=== PATIENT | male | born 1995 | race Caucasian/White ===

== ENCOUNTER 2023-04-17 13:49 | Emergency (ER) | payer MEDICAID, SELFPAY ==
[2023-04-17 14:08] VITALS: BP 147/88; PULSE 84; RESP 18; TEMP 36.4; O2SAT 98; BMI 31.6
[2023-04-17 16:20] VITALS: BP 147/86; PULSE 80; RESP 18; TEMP 37.1; O2SAT 100
--- NOTE | 2023-04-17 16:48 | ED.DENTAL ---
HPI - Dental/Oral <Johnny Verma PA-C - Last Filed: 04/17/23 16:51> General Chief complaint: Dental/Oral Stated complaint: TOOTH PX X2 Time Seen by Provider: 04/17/23 15:18 Source: patient Mode of arrival: Ambulatory History of Present Illness HPI Narrative: 28-year-old male presents to the ED with 2 days of right upper wisdom tooth pain. Patient states that he has been evaluated by the dentist in the [facility], was recommended to get the right upper wisdom tooth extracted due to an infection. However, patient is not living on the [facility] any longer, therefore is not eligible to be treated by this dentist. Patient had resurgence of pain in the tooth 2 days ago. Pain is poorly controlled with Tylenol and ibuprofen. Patient denies fever, chills, nausea, vomiting, trouble swallowing. Related Data Previous Rx's Medication Instructions Recorded amoxicillin 875 mg-potassium 1 tab PO Q12H 14 days #28 tabs 04/17/23 clavulanate 125 mg tablet oxycodone-acetaminophen 5 mg-325 1 tab PO Q6H PRN pain #10 tabs 04/17/23 mg tablet (Percocet) Allergies Allergy/AdvReac Type Severity Reaction Status Date / Time No Known Drug Allergies Allergy Verified 04/17/23 14:08 Review of Systems <Johnny Verma PA-C - Last Filed: 04/17/23 16:51> Constitutional Constitutional: Denies chills, Denies fatigue, Denies fever(s), Denies frequent falls, Denies lethargy and Denies weakness Eyes Eyes: Denies change in vision, Denies eye discharge, Denies irritation and Denies loss of vision ENT Ears, Nose, Mouth, and Throat: Denies change in voice, Reports dental pain, Denies dizziness, Denies neck pain, Denies sore throat and Denies throat swelling Cardiovascular Cardiovascular: Denies chest pain, Denies irregular heart rhythm, Denies lightheadedness, Denies palpitations, Denies dyspnea, Denies dyspnea on exertion and Denies orthopnea Respiratory Respiratory: Denies cough, Denies dyspnea, Denies dyspnea on exertion and Denies wheezing Gastrointestinal Gastrointestinal: Denies abdominal pain, Denies change in bowel habits, Denies diarrhea, Denies nausea and Denies vomiting Musculoskeletal Musculoskeletal: Denies neck pain and Denies numbness Integumentary/Breasts Skin/Breast: Denies pruritus, Denies erythema, Denies rash and Denies wounds Neurologic Neurologic: Denies behavioral changes, Denies confusion, Denies dizziness, Denies frequent falls, Denies loss of vision, Denies numbness and Denies weakness Psychiatric Psychiatric: Denies anxiety, Denies behavioral changes, Denies confusion, Denies depression, Denies homicidal ideation and Denies suicidal ideation Endocrine Endocrine: Denies fatigue, Denies flushing and Denies palpitations Hematologic/Lymphatic Hematologic/Lymphatic: Denies easy bruising Allergic/Immunologic Allergic/Immunologic: Denies urticaria, Denies throat swelling and Denies wheezing Patient History <Johnny Verma PA-C - Last Filed: 04/17/23 16:51> Social History Smoking Status: Never smoker Smoking Status: Never smoker alcohol intake frequency: holidays/special occasions only Substance Use Type: does not use Exam <Johnny Verma PA-C - Last Filed: 04/17/23 16:51> Narrative Exam Narrative: Const General:?cooperative, healthy appearing and comfortable [facility] Head:?normal to inspection Ears:?hearing grossly normal bilaterally Nose:?external nose normal Face and sinus:?normal facial exam and sinuses nontender Mouth:?oral mucosae normal; overall poor dentition; right upper wisdom tooth appears with caries, possible periapical abscess. It is tender to palpation. Throat:?posterior oropharynx normal Eyes General:?appearance normal, both eyes and all related structures Neck Neck:?normal visual inspection and no lymphadenopathy noted Resp Effort & Inspection:?normal respiratory effort Auscultation:?clear to auscultation bilaterally Cardio Rate:?regular rate Rhythm:?regular rhythm Neuro General:?patient alert, patient awake and patient oriented x3 Initial Vital Signs Initial Vital Signs: Vital Signs Temperature 97.6 F 04/17/23 14:08 Pulse Rate 84 04/17/23 14:08 Respiratory Rate 18 04/17/23 14:08 Blood Pressure 147/88 H 04/17/23 14:08 Pulse Oximetry 98 04/17/23 14:08 Oxygen Delivery Method Room Air 04/17/23 14:08 <Nicolasa Hutchinson DO - Last Filed: 04/22/23 07:36> Initial Vital Signs Initial Vital Signs: Vital Signs Temperature 97.6 F 04/17/23 14:08 Pulse Rate 84 04/17/23 14:08 Respiratory Rate 18 04/17/23 14:08 Blood Pressure 147/88 H 04/17/23 14:08 Pulse Oximetry 98 04/17/23 14:08 Oxygen Delivery Method Room Air 04/17/23 14:08 Course <Johnny Verma PA-C - Last Filed: 04/17/23 16:51> Vital Signs Vital signs: Vital Signs - 8 hr 04/17/23 14:08 04/17/23 16:20 Temperature 97.6 F 98.8 F Pulse Rate 84 80 Respiratory Rate 18 18 Blood Pressure 147/88 H 147/86 H Pulse Oximetry 98 100 Oxygen Delivery Method Room Air Room Air <Nicolasa Hutchinson DO - Last Filed: 04/22/23 07:36> Vital Signs Vital signs: Vital Signs - 8 hr 04/17/23 14:08 04/17/23 16:20 Temperature 97.6 F 98.8 F Pulse Rate 84 80 Respiratory Rate 18 18 Blood Pressure 147/88 H 147/86 H Pulse Oximetry 98 100 Oxygen Delivery Method Room Air Room Air MDM - Dental/Oral <Johnny Verma PA-C - Last Filed: 04/17/23 16:51> MDM Narrative Medical decision making narrative: 28-year-old male presents to the ED with 2 days of right upper wisdom tooth pain. Concern for odontogenic infection versus cracked tooth versus caries versus other. Will start patient on antibiotics, pain control. Recommend patient follow-up with a dentist as soon as possible. Recommended [facility] for or a walk-in clinic. ED return precautions were discussed with patient. Patient verbalized understanding. Medical records reviewed: Yes Discharge Plan Departure Patient Disposition: Home Clinical Impression: Toothache Instructions: DI for Dental Pain Activity Restrictions/Additional Instructions: You were evaluated in the ED today for dental pain. Your pain could be from the infected upper left wisdom tooth. You are being prescribed an antibiotic. Please take that as prescribed. It is important that you follow-up with a dentist as soon as possible for further evaluation and possible extraction of the infected tooth. [facility] may go to [facility] [address] [facility] [facility], [place], [place] [address]. The phone number is [phone]. They are a walk-in clinic so no appointments needed and are open Saturday through Saturday 8:00 a.m. to 5:00 p.m. Return to the ED if you have worsening symptoms, fever, chills, persistent vomiting. Prescriptions: New amoxicillin-pot clavulanate 875-125 mg tablet 1 tab PO Q12H 14 Days Qty: 28 0RF oxycodone-acetaminophen [Percocet] 5-325 mg tablet 1 tab PO Q6H PRN (Reason: pain) Qty: 10 0RF Referrals: Miscellaneous,Doctor, MD [Primary Care Provider] - Stand Alone Forms: Patient Portal/API ED Sign-out <Nicolasa Hutchinson DO - Last Filed: 04/22/23 07:36> Cosign ED Attending Wily Attestation: I was available for consultation.
== END 2023-04-17 16:21 | disposition home or self-care (01) ==
PROVIDERS: Emergency Provider Student in an Organized Health Care Education/Training Program
DX: K08.89 Other specified disorders of teeth and supporting structures (principal)
CPT/HCPCS: 99281

== ENCOUNTER 2023-12-20 05:00 | Emergency (ER) | payer OTHER, MEDICAID, SELFPAY ==
[2023-12-20 05:08] VITALS: BP 140/86; PULSE 105; RESP 20; TEMP 36.8; O2SAT 99; BMI 34.9
--- NOTE | 2023-12-20 05:18 | ED.SKABFB ---
HPI - Skin/Abscess/Foreign Bdy General Chief complaint: Skin/Abscess/Foreign Body Stated complaint: swollen face left side Time Seen by Provider: 12/20/23 05:17 Source: patient Mode of arrival: Ambulatory History of Present Illness HPI narrative: 28-year-old male who yesterday did have some left upper dental pain and yesterday does not have any dental pain but now has swelling and some discomfort in the left side of his face. No problems swallowing. No fevers. He did have tooth extracted about a month ago. No sinus congestion or sore throat. Has not tried anything for symptoms prior to arrival. Related Data Previous Rx's Medication Instructions Recorded oxycodone-acetaminophen 5 mg-325 1 tab PO Q6H PRN pain #10 tabs 04/17/23 mg tablet (Percocet) penicillin V potassium 500 mg 500 mg PO QID 7 days #28 tabs 12/20/23 tablet Allergies Allergy/AdvReac Type Severity Reaction Status Date / Time No Known Drug Allergies Allergy Verified 04/17/23 14:08 Review of Systems ENT Ears, Nose, Mouth, and Throat: Reports system reviewed and no additional complaints, except as documented Integumentary/Breasts Skin/Breast: Reports system reviewed and no additional complaints, except as documented Patient History Social History Smoking Status: Never smoker Smoking Status: Never smoker alcohol intake frequency: holidays/special occasions only Substance Use Type: does not use Exam Initial Vital Signs Initial Vital Signs: Vital Signs Temperature 98.2 F 12/20/23 05:08 Pulse Rate 105 H 12/20/23 05:08 Respiratory Rate 20 12/20/23 05:08 Blood Pressure 140/86 12/20/23 05:08 Pulse Oximetry 99 12/20/23 05:08 Oxygen Delivery Method Room Air 12/20/23 05:08 HENMT Ears: TM's normal bilaterally Face and sinus: no crepitus, no ecchymosis, no erythema, edema on the left maxilla and no fluctuance Mouth: oral mucosae normal Teeth and gingiva: fair dentition Skin General: no rashes or lesions noted Neuro General: patient alert and patient awake Course Orders Ordered: Discontinued Medications Penicillin V Potassium (Penicillin Vk 250 Mg Tablet) 500 mg PO NOW ONE Stop: 08/30/24 05:19 Vital Signs Vital signs: Vital Signs - 8 hr 12/20/23 05:08 Temperature 98.2 F Pulse Rate 105 H Respiratory Rate 20 Blood Pressure 140/86 Pulse Oximetry 99 Oxygen Delivery Method Room Air MDM - Skin/Abscess/Foreign Bdy MDM Narrative Medical decision making narrative: No overt abscess noted that is drainable here in the emergency department however his physical exam and presentation today are most consistent with a dental abscess. Will treat him with antibiotics. First dose given here in the ER and remainder of the prescription sent to the pharmacy his choice. He was advised to contact a dentist for a follow-up. Expressed understanding and agreement with the plan. Discharge Plan Departure Patient Disposition: Home Clinical Impression: Dental infection Instructions: Tooth Abscess Activity Restrictions/Additional Instructions: Recommend that you take the antibiotics as directed. I also recommend that you follow-up with a dentist. You can take Tylenol/ibuprofen for discomfort. Return to the emergency department for new or worsening symptoms. Prescriptions: New penicillin V potassium 500 mg tablet 500 mg PO QID 7 Days Qty: 28 0RF No Action oxycodone-acetaminophen [Percocet] 5-325 mg tablet 1 tab PO Q6H PRN (Reason: pain) Qty: 10 0RF Referrals: Miscellaneous,Doctor, [Primary Care Provider] - Stand Alone Forms: Patient Portal/API
[2023-12-20] MEDS: PENICILLIN VK 250 MG TABLET 500 MG PO (05:31)
== END 2023-12-20 05:33 | disposition home or self-care (01) ==
PROVIDERS: Emergency Provider Emergency Medicine
DX: K04.7 Periapical abscess without sinus (principal)
CPT/HCPCS: 99283

== ENCOUNTER 2025-03-14 14:49 | Emergency (ER) | payer OTHER, SELFPAY ==
[2025-03-14 14:58] VITALS: BP 144/85; PULSE 77; RESP 16; TEMP 36.7; O2SAT 98; BMI 37.4
--- NOTE | 2025-03-14 15:13 | ED_ITS ---
HPI - Skin/Abscess/Foreign Bdy General Chief complaint: Skin/Abscess/Foreign Body Stated complaint: swelling in the face Time Seen by Provider: 03/14/25 15:10 Source: patient Mode of arrival: Ambulatory Limitations: no limitations History of Present Illness HPI narrative: Patient healthy 29-year-old male presenting today with left-sided facial swelling. He does have poor dentition he had some dental pain a day or 2 ago he was getting better but this morning around midnight woke up and had some swelling he took some Benadryl and went down. He has no difficulty swallowing no tongue swelling no rash. He does feel some pressure in his teeth but can not pinpoint if it is directly tooth infection. He tried calling a dentist but many are multiple months out. He has not had fever or chills. Related Data Previous Rx's ?Medication ?Instructions ?Recorded clindamycin HCl 300 mg capsule 300 mg PO TID 7 days #2 1 caps 03/14/25 Allergies Allergy/AdvReac Type Severity Reaction Status Date / Time Penicillins Allergy Severe Anaphylaxis Verified 03/14/25 14:57 Patient History Smoking Status: Former smoker tobacco type: vaping alcohol intake frequency: holidays/special occasions only Exam Initial Vital Signs Initial Vital Signs: Vital Signs Temperature 98.0 F 03/14/25 14:58 Pulse Rate 77 03/14/25 14:58 Respiratory Rate 16 03/14/25 14:58 Blood Pressure 144/85 H 03/14/25 14:58 Pulse Oximetry 98 03/14/25 14:58 Oxygen Delivery Method Room Air 03/14/25 14:58 GENERAL: Well-appearing, well-nourished and in no acute distress. HENT: Overall poor dentition no obvious dental abscess but he does have some obvious left zygomatic facial swelling without significant erythema. Maintaining secretions and airway is patent. EARS: Tympanic membrane visualized bilaterally without erythema or fluid CARDIOVASCULAR: peripheral pulses in tact, cap refill <2 sec RESPIRATORY: No respiratory distress, speaks in full sentences without difficulty EXTREMITIES: Normal range of motion, no clubbing or edema. Neurovascularly intact NEUROLOGICAL: Cranial nerves II through XII grossly intact. Normal gait and speech. SKIN: Warm, dry, no petechiae, no rashes or lesions. Course Vital Signs Vital signs: Vital Signs - 8 hr 03/14/25 14:58 Temperature 98.0 F Pulse Rate 77 Respiratory Rate 16 Blood Pressure 144/85 H Pulse Oximetry 98 Oxygen Delivery Method Room Air MDM - Skin/Abscess/Foreign Bdy MDM Narrative Medical decision making narrative: Patient healthy 29-year-old male presenting today with facial swelling. I suspect a dental infection he has no significant erythema no fever vitals are stable. He is allergic to penicillin with anaphylaxis reaction. He is given 1st dose of clindamycin here in the ED. No concern for Dominick angina. Discharge Plan Departure Patient Disposition: Home Clinical Impression: Pain, dental Instructions: DI for Dental Pain Activity Restrictions/Additional Instructions: *You have been diagnosed with dental pain *What to do: At this time suspect you have a tooth infection. Please call and follow-up with dentist as soon as possible *Continue to take medications as directed Clindamycin 300 mg 3 times a day for 7 days Motrin 600 mg every 6 hours for [id number] pain Tylenol 1000 mg every 6 hours for [id number] pain *Follow up with your primary care provider in 2-3 days or call [phone] *Return to ER if you should have increasing facial swelling redness fever difficulty swallowing or any new, worsening or concerning symptoms Prescriptions: New clindamycin HCl 300 mg capsule 300 mg PO TID 7 Days Qty: 21 0RF Stand Alone Forms: Patient Portal/API
[2025-03-14] MEDS: CLINDAMYCIN 150 MG CAPSULE 300 MG PO (15:21)
== END 2025-03-14 15:31 | disposition home or self-care (01) ==
PROVIDERS: Emergency Provider Emergency Medicine
DX: K08.89 Other specified disorders of teeth and supporting structures (principal); R22.0 Localized swelling, mass and lump, head; Z88.0 Allergy status to penicillin
CPT/HCPCS: 99283

== ENCOUNTER 2025-03-15 05:47 | Emergency (ER) | payer OTHER, SELFPAY ==
--- NOTE | 2025-03-15 05:56 | DI.CT.S_ITS ---
PROCEDURE: CT SOFT TISSUE NECK W CON INDICATIONS: left facial swelling, dental infection TECHNIQUE: After the administration of intravenous contrast, 3.0 mm axial sections acquired from the sella to the aortic arch. Additional oblique axial 3.0 mm sections acquired through the pharynx. 3 mm thick coronal and sagittal reformats were generated. For radiation dose reduction, the following was used: automated exposure control. COMPARISON: None. FINDINGS: Image quality: Excellent. Lymph nodes: No enlarged lymph nodes seen throughout the neck. Vessels: Visualized vasculature appears patent. Neck spaces: The oropharynx, nasopharynx, and pharynx demonstrate no mucosal lesions. The vocal cords, false vocal cords, pyriform sinuses, epiglottis, vallecula, and tongue base all appear normal. Extramucosal spaces appear unremarkable. Glands: The parotid and submandibular glands appear normal. Thyroid gland is unremarkable. Miscellaneous: Cellulitic change, left maxillary and mandibular regions without abscess or soft tissue gas. Visualized brain and orbits appear normal. Lung apices appear clear. Superficial soft tissues appear normal. Bones: No suspicious bony lesions. Poor dentition. Findings include a periapical lucency in the left front maxillary tooth as well as a tooth remnant in the left maxilla. Visualized sinuses and mastoids appear unremarkable. IMPRESSION: 1. Poor dentition with left frontal maxillary tooth periapical lucency. 2. Left face cellulitic change without abscess. Comment: Final report is concordant with preliminary interpretation provided by [facility]. Dictated by: Sesar Moreau M.D. on 03/15/2025 at 7:27 Approved by: Sesar Moreau M.D. on 03/15/2025 at 7:32
--- NOTE | 2025-03-15 05:57 | ED.GENADULT ---
HPI - General Adult General Chief complaint: Dental/Oral Stated complaint: Facial Swelling Time Seen by Provider: 03/15/25 05:55 History of Present Illness HPI narrative: 29-year-old male currently on oral clindamycin antibiotic for left upper tooth dental infection, increasing swelling to the left lip and maxillary face. No direct blow or trauma. Able to swallow, no change in voice. Moves his neck well. Denies sensation of fevers or chills. History of penicillin allergy. Related Data Previous Rx's ?Medication ?Instructions ?Recorded clindamycin HCl 300 mg capsule 300 mg PO TID 7 days #21 caps 03/14/25 prednisone 20 mg tablet 40 mg (2 x 20 mg) PO DAILY 5 days 03/15/25 #10 tabs Allergies Allergy/AdvReac Type Severity Reaction Status Date / Time Penicillins Allergy Severe Anaphylaxis Verified 03/15/25 06:01 Patient History Social History Smoking Status: Current every day smoker tobacco type: vaping alcohol intake frequency: holidays/special occasions only Exam Narrative Exam Narrative: GENERAL: Well-developed patient, in mild distress. HEAD: Atraumatic. Normocephalic. EYES: Pupils equal round and reactive. Extraocular motions intact. No scleral icterus. No injection or drainage. ENT: Left upper lip and pre-maxillary facial edema c/w cellulitis, no visible head, no fluctuance, no crepitance, intraoral exam shows poor dental caries throughout, without specific area of gingival swelling. Open mouth well. Normal phonation, able handle his oral secretions. NECK: Trachea midline. Moves neck well. CARDIOVASCULAR: Regular rate and rhythm without murmurs, gallops, or rubs. RESPIRATORY: Clear to auscultation. Breath sounds equal bilaterally. No wheezes, rales, or rhonchi. GASTROINTESTINAL: Abdomen soft, non-tender, nondistended. EXTREMITIES: No edema or joint tenderness. BACK: Nontender without deformity or crepitance. No flank tenderness. NEURO: AOx3. Motor functions grossly nonfocal. SKIN: No rash or erythema of visible areas Initial Vital Signs Initial Vital Signs: Vital Signs Temperature 97 F L 03/15/25 06:01 Pulse Rate 107 H 03/15/25 06:01 Respiratory Rate 16 03/15/25 06:01 Blood Pressure 144/91 H 03/15/25 06:01 Pulse Oximetry 98 03/15/25 06:01 Oxygen Delivery Method Room Air 03/15/25 06:01 Course Orders Ordered: Discontinued Medications Dexamethasone (Dexamethasone 10 Mg/Ml Vial) 10 mg IV NOW ONE Stop: 03/15/25 05:56 Last Admin: 03/15/25 06:11 Dose: 10 mg Documented By: MITLON Clindamycin Phosphate (Cleocin) 900 mg in 50 mls @ 50 mls/hr IV NOW ONE Stop: 03/15/25 06:54 Last Infusion: 03/15/25 07:18 Dose: Infused Documented By: Admin: 03/15/25 06:11 Dose: 50 mls/hr Documented By: MILTON Sodium Chloride (Normal Saline 0.9%) 1,000 mls @ 1,000 mls/hr IV BOLUS ONE Stop: 03/15/25 06:55 Last Infusion: 03/15/25 07:18 Dose: Infused Documented By: Admin: 03/15/25 06:10 Dose: 1,000 mls/hr Documented By: MILTON Ketorolac Tromethamine (Ketorolac 30 Mg/Ml Vial) 15 mg IV NOW ONE Stop: 03/15/25 05:57 Last Admin: 03/15/25 06:10 Dose: 15 mg Documented By: MILTON Vital Signs Vital signs: Vital Signs - 8 hr 03/15/25 06:01 03/15/25 06:19 03/15/25 06:20 Temperature 97 F L Pulse Rate 107 H 99 H 101 H Respiratory Rate 16 16 Blood Pressure 144/91 H Pulse Oximetry 98 96 96 Oxygen Delivery Method Room Air Room Air Room Air 03/15/25 06:20 03/15/25 06:30 03/15/25 06:30 Temperature Pulse Rate 97 H Respiratory Rate Blood Pressure 140/80 131/73 Pulse Oximetry 94 Oxygen Delivery Method Room Air 03/15/25 07:00 03/15/25 07:00 Temperature Pulse Rate 94 H Respiratory Rate 18 Blood Pressure 121/77 Pulse Oximetry 96 Oxygen Delivery Method Room Air Medical Decision Making Lab Data 03/15/25 05:59 03/15/25 05:59 Labs: Lab Results 03/15/25 Range/Units 05:59 WBC 11.9 H (4.5-11.0) X10^3/uL RBC 5.49 (4.5-5.9) X10^6/uL Hgb 16.0 (13.5-17.5) g/dL Hct 46.1 (41-53) % MCV 84.0 (80-100) fL MCH 29.2 (26-34) PG MCHC 34.7 (30-36) % RDW 13.6 (11.6-14.8) % Plt Count 441 H (150-400) X10^3/uL Neut % (Auto) 67.8 (50-75) % Lymph % (Auto) 18.8 L (25-40) % [place] % (Auto) 12.2 (3-14) % Eos % (Auto) 0.8 L (2-4) % Baso % (Auto) 0.4 (0-2) % Neut # (Auto) 8100 H (0791-2659) /uL Lymph # (Auto) 2200 (6170-6648) /uL [place] # (Auto) 1400 H (0-900) /uL Eos # (Auto) 100 (0-450) /uL Baso # (Auto) 0 (0-100) /uL Sodium 140 (137-145) mmol/L Potassium 3.7 (3.4-5.1) mmol/L Chloride 106 (98-107) mmol/L Carbon Dioxide 22 (22-32) mmol/L BUN 7 L (9-20) mg/dL Creatinine 0.81 (0.66-1.25) mg/dL Estimated GFR > 60 (>60) mL/min BUN/Creatinine Ratio 8.6 (6-22) Glucose 151 H (70-99) mg/dL Calcium 9.3 (8.4-10.2) mg/dL Total Bilirubin 1.1 (0.2-1.3) mg/dL AST 43 (17-59) IU/L ALT 129 H (<50) IU/L Alkaline Phosphatase 106 (38-126) U/L Total Protein 8.6 H (6.3-8.2) g/dL Albumin 4.6 (3.5-5.0) g/dL Globulin 4.0 (1.7-4.1) g/dL Albumin/Globulin Ratio 1.2 (1.0-2.8) MDM Narrative Medical decision making narrative: 29-year-old male with history of penicillin allergy, on oral clindamycin antibiotic for dental infection left upper incisor/canine tooth area, increasing swelling to the left upper lip and left premaxillary face. Suspect odontogenic infection with spreading left facial edema/cellulitis. Doubt allergic reaction to clindamycin. Consider imaging to look for drainable fluid collection, patient agreeable. IV Decadron, IV Toradol, IV clindamycin. Labs pending. CT face IV contrast. CT next/face with IV contrast. 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 ? See tele radiology report. No mention of any drainable fluid collections. Some improvement of symptoms. Patient encouraged in discharge instructions to continue his clindamycin antibiotic. Will add prednisone steroid oral pulse to help control inflammation. Follow up with his dentist advised early this week. Discharge home. Discharge Plan Departure Patient Disposition: Home Clinical Impression: Cellulitis of face, Dental infection Activity Restrictions/Additional Instructions: Left upper anterior dental infection, having started clindamycin antibiotic yesterday, increasing swelling today without local direct trauma. No problems with swelling, normal voice. No fever on triage. CT imaging showed some swelling of the facial structures, no drainable fluid, suspected likely due to your dental caries as etiology of the infection. No drainable fluid at this time. Continue taking your antibiotics as directed. Take oral prednisone steroid for the next few days to help reduce swelling. Recheck with your dentist this week. Return to this/nearest emergency department for any change worsening symptoms or any concerns arrived. Prescriptions: New prednisone 20 mg tablet 40 mg PO DAILY 5 Days Qty: 10 0RF No Action clindamycin HCl 300 mg capsule 300 mg PO TID 7 Days Qty: 21 0RF Stand Alone Forms: Patient Portal/API
[2025-03-15 06:01] VITALS: BP 144/91; PULSE 107; RESP 16; TEMP 36.1; O2SAT 98; BMI 38.2
[2025-03-15 06:08] LABS: Add Manual Diff / Slide Review NO; Hematocrit 46.1 % (41-53); Hemoglobin 16.0 g/dL (13.5-17.5); Lymphocytes Absolute Auto 2200 /uL (1100-4500); Mean Corpuscular HGB Conc 34.7 % (30-36); Mean Corpuscular Hemoglobin 29.2 PG (26-34); Mean Corpuscular Volume 84.0 fL (80-100); Platelet Count 441 X10^3/uL (150-400)
--- NOTE | 2025-03-15 06:08 | PC.NURSE ---
Pt ambulatory to imaging with senior quality technician
[2025-03-15] MEDS: KETOROLAC 30 MG/ML VIAL 15 MG IV (06:10)
[2025-03-15] MEDS: SODIUM CHLORIDE 0.9% 1,000 ML 1000 ML IV (06:10)
[2025-03-15] MEDS: CLINDAMYCIN 900 MG/50 ML PIGGYBACK 50 MG IV (06:11)
[2025-03-15 06:19] VITALS: PULSE 99; RESP 16; O2SAT 96
[2025-03-15 06:20] VITALS: BP 140/80; PULSE 101; O2SAT 96
[2025-03-15 06:27] LABS: Alanine Aminotransferase 129 IU/L (<50); Albumin 4.6 g/dL (3.5-5.0); Albumin Globulin Ratio 1.2 (1.0-2.8); Alkaline Phosphatase 106 U/L (38-126); Blood Urea Nitrogen 7 mg/dL (9-20); Calcium 9.3 mg/dL (8.4-10.2); Carbon Dioxide 22 mmol/L (22-32); Chloride 106 mmol/L (98-107); Estimated Glomerular Filt Rate > 60 mL/min (>60); Globulin 4.0 g/dL (1.7-4.1); Glucose 151 mg/dL (70-99); HEMOLYSIS < 15 (0-50); Potassium 3.7 mmol/L (3.4-5.1); Sodium 140 mmol/L (137-145); Total Protein 8.6 g/dL (6.3-8.2)
[2025-03-15 06:30] VITALS: BP 131/73; PULSE 97; O2SAT 94
[2025-03-15 07:00] VITALS: BP 121/77; PULSE 94; RESP 18; O2SAT 96
[2025-03-15 07:30] VITALS: BP 116/76; PULSE 90; RESP 18; O2SAT 94
== END 2025-03-15 07:41 | disposition home or self-care (01) ==
PROVIDERS: Emergency Provider Emergency Medicine
DX: L03.211 Cellulitis of face (principal); K04.7 Periapical abscess without sinus; Z88.0 Allergy status to penicillin
CPT/HCPCS: 36415; 70491; 80053; 85025; 96365; 96375; 99284; J1100; J1885; J7030; Q9967